=== PATIENT | male | born 1980 | race African-American/Black ===

== ENCOUNTER 2019-10-10 04:08 | Emergency (ER) | payer SELFPAY ==
[~2019-10-10] VITALS: Ht 167.6 cm; Wt 64.0 kg
[2019-10-10] MEDS ORDERED: KETOROLAC 60MG/2ML VIAL IM STA (06:30)
[2019-10-10 06:50] VITALS: BP 120/60
== END 2019-10-10 06:51 | disposition home or self-care (01) ==
LOC: ER 04:08
DX: M79.671 Pain in right foot (principal); F12.10 Cannabis abuse, uncomplicated; Z87.828 Personal history of other (healed) physical injury and trauma
CPT/HCPCS: 96372; 99283; J1885